=== PATIENT | female | born 1995 | race African-American/Black ===

== ENCOUNTER → 2018-09-12 | Outpatient (CLI) | payer OTHER | LOC: OD 16:29 | PROVIDERS: ATTEND Obstetrics & Gynecology Gynecology | DX: Z32.01 Encounter for pregnancy test, result positive (principal) | CPT/HCPCS: 36415; 84702 ==

== ENCOUNTER 2020-02-19 16:36 | Emergency (ER) | payer OTHER ==
[2020-02-19] MEDS ORDERED: ACETAMINOPHEN 325 MG TABLET PO ONE (17:43)
[2020-02-19] MEDS ORDERED: METOCLOPRAMIDE HCL INJ/PF 10 MG/2 ML SDV IV ONE (17:43)
[2020-02-19] MEDS ORDERED: NORMAL SALINE 1000 ML 1,000 ML IV ONE (17:45)
--- NOTE | 2020-02-19 17:46 | ER Document Report ---
ED Medical Screen (RME) - General Chief Complaint: Vomiting Stated Complaint: VOMITING,6 WEEKS PREG Time Seen by Provider: 02/19/20 17:38 Primary Care Provider: RANI TOBAR MD [Primary Care Provider] - Follow up as needed Notes: Patient is a G4, P2, A1 24-year-old female who presents emergency department with a chief complaint of nausea and vomiting for the past 2 weeks. Patient states that she also has some abdominal cramping. Denies any vaginal discharge or vaginal bleeding. States that she has not been able to keep anything down. Still making urine. Exam: Slightly tender mid lower abdomen. I have greeted and performed a rapid initial assessment of this patient. A comprehensive ED assessment and evaluation of the patient, analysis of test results and completion of medical decision making process will be conducted by an additional ED providers. TRAVEL OUTSIDE OF THE [place] IN LAST 30 DAYS: No - Related Data Allergies/Adverse Reactions: No Known Allergies Allergy (Verified 02/19/20 17:38) Physical Exam - Vital signs Vitals: Temp Pulse Resp BP Pulse Ox 99.2 F 110 H 20 116/80 100 02/19/20 16:53 02/19/20 16:53 02/19/20 16:53 02/19/20 16:53 02/19/20 16:53 Course - Vital Signs Vital signs: Temp Pulse Resp BP Pulse Ox 99.2 F 110 H 20 116/80 100 02/19/20 16:53 02/19/20 16:53 02/19/20 16:53 02/19/20 16:53 02/19/20 16:53 Doctor's Discharge - Discharge Referrals: RANI TOBAR MD [Primary Care Provider] - Follow up as needed
[2020-02-19] MEDS ORDERED: METOCLOPRAMIDE HCL 10 MG TABLET PO ONE (17:48)
[2020-02-19 18:11] LABS: ABSOLUTE LYMPHOCYTES (AUTO) 1.1 10^3/uL (0.5-4.7); ABSOLUTE MONOCYTES (AUTO) 0.4 10^3/uL (0.1-1.4); ABSOLUTE NEUT (AUTO) 5.2 10^3/uL (1.7-8.2); BASOPHILS % (AUTO) 0.4 % (0-2); EOSINOPHILS % (AUTO) 0.3 % (0-6); HEMATOCRIT 38.9 % (36.0-47.0); HEMOGLOBIN 13.3 g/dL (12.0-15.5); LYMPHOCYTES % (AUTO) 16.9 % (13-45); MEAN CORPUSCULAR HEMOGLOBIN 29.3 pg (27.0-33.4); MEAN CORPUSCULAR HGB CONC 34.1 g/dL (32.0-36.0); MEAN CORPUSCULAR VOLUME 86 fl (80-97); PLATELET COUNT 345 10^3/uL (150-450); RED BLOOD COUNT 4.52 10^6/uL (3.72-5.28); RED CELL DISTRIBUTION WIDTH 12.4 % (11.5-14.0); SEGMENTED NEUTROPHILS % (AUTO) 76.4 % (42-78); TOTAL CELLS COUNTED % (AUTO) 100 %; WHITE BLOOD COUNT 6.8 10^3/uL (4.0-10.5)
[2020-02-19 18:24] LABS: APPEARANCE,URINE CLOUDY; BILIRUBIN,URINE NEGATIVE (NEGATIVE); GLUCOSE, URINE NEGATIVE (NEGATIVE); KETONES,URINE 80 mg/dL (NEGATIVE); LEUKOCYTE ESTERASE,URINE MODERATE (NEGATIVE); NITRITE,URINE NEGATIVE (NEGATIVE); PROTEIN,URINE 100 mg/dL (NEGATIVE); URINE SPECIFIC GRAVITY 1.027
[2020-02-19 18:25] LABS: COLOR,URINE DARK YELLOW
[2020-02-19 18:34] LABS: ALBUMIN 4.9 g/dL (3.5-5.0); ALKALINE PHOSPHATASE 51 U/L (38-126); ANION GAP 12 (5-19); ASPARTATE AMINO TRANSFERASE 22 U/L (14-36); BILIRUBIN,DIRECT 0.3 mg/dL (0.0-0.4); BILIRUBIN,TOTAL 0.5 mg/dL (0.2-1.3); BLOOD UREA NITROGEN 14 mg/dL (7-20); CARBON DIOXIDE 26 mmol/L (22-30); CHLORIDE 99 mmol/L (98-107); GLUCOSE 83 mg/dL (75-110); POTASSIUM 3.9 mmol/L (3.6-5.0); TOTAL PROTEIN 8.5 g/dL (6.3-8.2)
--- NOTE | 2020-02-19 20:35 | ER Document Report ---
ED GI/ - General Chief Complaint: Vomiting Stated Complaint: VOMITING,6 WEEKS PREG Time Seen by Provider: 02/19/20 17:38 Primary Care Provider: RANI TOABR MD [Primary Care Provider] - Follow up as needed Mode of Arrival: Ambulatory Information source: Patient Notes: 24-year-old female 4 para 2 presents to the emergency room with worsening nausea and vomiting ongoing for the past 2 weeks. States she has not been able to tolerate anything p.o. for the last 3 days. Complains of some abdominal cramping but denies any urinary symptoms. No vaginal bleeding, no vaginal discharge. [facility]. Had a positive home test as well as a positive test at the urgent care back in January. LMP December 10, 2019 TRAVEL OUTSIDE OF THE [place] IN LAST 30 DAYS: No - Related Data Allergies/Adverse Reactions: No Known Allergies Allergy (Verified 02/19/20 17:38) Past Medical History - General Information source: Patient - Social History Smoking Status: Never Smoker Frequency of alcohol use: None Drug Abuse: None Family History: Reviewed & Not Pertinent Patient has homicidal ideation: No Review of Systems - Review of Systems Constitutional: No symptoms reported Cardiovascular: No symptoms reported Respiratory: No symptoms reported Gastrointestinal: Abdominal pain, Nausea, Vomiting. denies: Diarrhea, Constipation Genitourinary: No symptoms reported Female Genitourinary: Skin: No symptoms reported Neurological/Psychological: No symptoms reported -: Yes All other systems reviewed and negative Physical Exam - Vital signs Vitals: Temp Pulse Resp BP Pulse Ox 99.2 F 110 H 20 116/80 100 02/19/20 16:53 02/19/20 16:53 02/19/20 16:53 02/19/20 16:53 02/19/20 16:53 - Notes Notes: VITAL SIGNS: Within normal limits. GENERAL: Mild acute distress, non-toxic appearance. HEAD: Normal with no signs of head trauma. EYES: PERRLA, EOMI, conjunctiva normal, no discharge. EARS: Hearing grossly intact. NOSE: Normal. THROAT: Oropharynx is normal. NECK: Normal range of motion, no tenderness, supple, no lymphadenopathy, No adenopathy, no JVD. CHEST: Clear breath sounds bilaterally. No wheezes, rales, or rhonchi. CARDIAC: Tachycardic with normal S1 and S2, without murmurs, gallops, or rubs. VASCULAR: No Edema. Peripheral pulses normal and equal in all extremities. ABDOMEN: Normal and soft with no tenderness, no masses or pulsatile masses. No organomegaly. Positive bowel sounds x4. No CVA tenderness noted bilaterally. GASTROINTESTINAL: Bowel sounds normal GENITOURINARY: Normal, No tenderness LYMPATHTIC: No lymphadenopathy noted. MUSCULOSKELETAL: Good range of motion of all major joints. Extremities without clubbing, cyanosis or edema. NEUROLOGICAL: Alert and oriented x 3. No focal sensory or strength deficits. Speech normal. Follows commands appropriately. PSYCHIATRIC: Normal Affect, judgement and mood. SKIN: Normal appearance with no rashes or lesions. - General General appearance: Appears well, Alert Course - Re-evaluation Re-evalutation: 02/19/20 21:37 Patient with stable labs. Will send urine for culture. Ultrasound with a viable 10-week 5-day intrauterine with a heart tones of 163. Will do p.o. challenge and reevaluate. 02/19/20 21:58 Informed by nursing staff that patient did not want to stay any longer that she is still unable to tolerate p.o. but would like to leave. Had long discussion with the patient explained the risk and benefits of leaving AGAINST MEDICAL ADVICE. Including but not limited to worsening condition, loss of current lifestyle, , risk of miscarriage, risk of worsening condition. Patient has decided that she will stay longer for additional anti-medics, IV fluids, and reevaluation. 02/19/20 23:22 Patient is resting comfortably at this time. States nausea has improved. Will attempt p.o. challenge and reevaluate. 02/19/20 23:41 Patient is resting comfortably denies pain. Pain-free on exam. She is able to tolerate p.o. fluids. Patient will be discharged home on Zofran. Outpatient follow-up with her [facility] as scheduled. Patient was given strict return to the emergency room guidelines. Return for any new or worsening symptoms. All questions were answered. Patient verbalized understanding and agrees with plan of care. - Vital Signs Vital signs: Temp Pulse Resp BP Pulse Ox 99.2 F 110 H 20 116/80 100 02/19/20 16:53 02/19/20 16:53 02/19/20 16:53 02/19/20 16:53 02/19/20 16:53 - Laboratory Result Diagrams: 02/19/20 17:57 02/19/20 17:57 Laboratory results interpreted by me: 02/19/20 02/19/20 17:57 17:57 Sodium 136.8 L Total Protein 8.5 H Beta HCG, Quant 862323.00 H Urine Protein 100 H Urine Ketones 80 H Urine Urobilinogen 4.0 H Ur Leukocyte Esterase MODERATE H - Diagnostic Test Radiology reviewed: Reports reviewed Discharge - Discharge Clinical Impression: Hyperemesis Condition: Stable Disposition: HOME, SELF-CARE Instructions: Antinausea Medication ([facility]), Hyperemesis Gravidarum ([facility]), Vomiting ([facility]) Additional Instructions: Eat frequent small meals throughout the day. Medication as prescribed. Push fluids. Outpatient follow-up with your [facility] as scheduled. Return to the emergency room for any new or worsening symptoms. Prescriptions: Ondansetron [Zofran Odt 4 mg Tablet] 1 tab PO Q4H PRN #15 tab.rapdis PRN Reason: For Nausea/Vomiting Referrals: RANI TOBAR MD [Primary Care Provider] - Follow up as needed
--- NOTE | 2020-02-19 20:46 | RADIOLOGY REPORT (SQ) ---
US PELVIS HISTORY: Early . Pelvic pain. COMPARISON: None. TECHNIQUE: Grayscale, color Doppler, and spectral Doppler ultrasound images of the pelvis were obtained. FINDINGS: There is an intrauterine gestational sac with a yolk sac and pole visualized. The crown-rump length measures 3.8 cm corresponding to 10 weeks 5 days. The heart rate is 163 bpm. The cervix is 3.6 cm and is closed. The ovaries were not visualized. No subchorionic hematoma. IMPRESSION: Single live IUP with estimated gestational age 10 weeks 5 days.
[2020-02-19] MEDS ORDERED: RINGERS SOLUTION,LACTATED 1,000 ML IV ONE (22:00)
[2020-02-19] MEDS ORDERED: ONDANSETRON HCL INJ/PF 4 MG/2 ML SDV IV ONE (22:00)
[2020-02-19] MEDS ORDERED: ONDANSETRON ODT 4 MG TAB (6 TAB/ER DISP) PO PRN (23:42)
[2020-02-20 00:17] VITALS: BP 121/74
== END 2020-02-20 00:19 | disposition home or self-care (01) ==
LOC: ER 16:36
DX: O21.9 Vomiting of pregnancy, unspecified (principal); Z3A.01 Less than 8 weeks gestation of pregnancy
CPT/HCPCS: 99285; 96361; 96374; 86900; 86901; 36415; 87086; 84702; 83690; 85025; 80053; 81001; 76817; J2405; J7120